=== PATIENT | male | born 1985 | race Caucasian/White ===

== ENCOUNTER 2018-01-02 11:30 | Emergency (ER) | payer OTHER ==
[~2018-01-02] VITALS: Ht 195.6 cm; Wt 113.4 kg
[2018-01-02] MEDS ORDERED: OXYCODONE HCL 55 MG PO (11:41)
[2018-01-02] MEDS ORDERED: IBUPROFEN 200200 M1 PO (11:42)
[2018-01-02] MEDS ORDERED: TYLENOL325 MG PO (11:42)
[2018-01-02] MEDS ORDERED: NORCO 5-325 TA1 EAC1 PO (12:51)
[2018-01-02] MEDS ORDERED: MEDROLDOSEPACK PO (12:51)
[2018-01-02] MEDS ORDERED: ROBAXIN500 MG PO (12:51)
[2018-01-02 13:00] VITALS: BP 132/86
== END 2018-01-02 13:00 | disposition home or self-care (01) ==
LOC: M.ERS 11:30
DX: S50.02XA Contusion of left elbow, initial encounter (principal); F17.210 Nicotine dependence, cigarettes, uncomplicated; Z86.14 Personal history of Methicillin resistant Staphylococcus aureus infection; W18.39XA Other fall on same level, initial encounter; Y93.89 Activity, other specified; Y92.89 Other specified places as the place of occurrence of the external cause; Y99.0 Civilian activity done for income or pay